=== PATIENT | female | born 1990 | race Caucasian/White ===

== ENCOUNTER 2018-06-03 21:15 | Emergency (ER) | payer MEDICAID ==
[~2018-06-03] VITALS: Ht 147.3 cm; Wt 64.4 kg
[2018-06-03 21:25] VITALS: BP 103/67
--- NOTE | 2018-06-03 21:35 | NUR ---
PT TO [facility]
--- NOTE | 2018-06-03 23:00 | NUR ---
28 Y/O F W/C/O Vaginal bleeding 1 pad in last 4 hours, LOWER ABD PAIN [id number] 6 weeks now . PT WAS SEEN EARLIER FOR SAME S/S BUT NOW C/O MORE PAIN AND HEAVIER BLEEDING. PT AAOX4, RR EVEN/UNLABORED. NO S/S OF DISTRESS NOTED. PT WITH EVEN, STEADY GAIT. ER MADE AWARE.
[2018-06-04 02:27] VITALS: BP 100/67
== END 2018-06-03 23:15 | disposition home or self-care (01) ==
LOC: MED 21:15
DX: O20.0 Threatened abortion (principal); Z3A.01 Less than 8 weeks gestation of pregnancy
CPT/HCPCS: 81002; 81025; 99283